=== PATIENT | female | born 1940 | race Caucasian/White ===

== ENCOUNTER → 2016-08-05 | Outpatient (CLI) | payer MEDICARE, BC ==
[2016-08-05 08:37] LABS: Basophils % (A) 0 %; CH 32.4; CHCM 33.9; Eosinophils # (A) 0.3 k/uL (0-0.7); Eosinophils % (A) 4 %; HDW 2.58; HGB 14.2 gm/dL (11.4-16.0); Luc # (Auto) 0.16; Luc % (Auto) 2; Lymphocytes # (A) 0.9 k/uL (1.0-4.8); Lymphocytes % (A) 11 %; MCH 33.3 pg (25.0-35.0); MCHC 34.7 g/dL (31.0-37.0); Monocytes # (A) 0.5 k/uL (0-1.0); Monocytes % (A) 6 %; Neutrophils % (A) 76 %; RBC 4.27 m/uL (3.80-5.40); RDW 12.4 % (11.5-15.5); WBC 7.9 k/uL (3.8-10.6); WBC (Perox) 8.29
[2016-08-05 12:29] LABS: Hemoglobin A1C 5.5 % (4.2-6.1)
[2016-08-05 12:30] LABS: ALT 47 U/L (9-52); AST 37 U/L (14-36); Alkaline Phosphatase 102 U/L (38-126); Anion Gap 9 mmol/L; Blood Urea Nitrogen 21 mg/dL (7-17); Calcium 9.2 mg/dL (8.4-10.2); Carbon Dioxide 28 mmol/L (22-30); Chloride 105 mmol/L (98-107); Cholesterol 109 mg/dL (<200); Glucose 89 mg/dL (74-99); HDL Cholesterol 36 mg/dL (40-60); Magnesium 1.8 mg/dL (1.6-2.3); Non-African American GFR(MDRD) >60 (>60 ml/min/1.73 sqM); Potassium 4.2 mmol/L (3.5-5.1); Sodium 142 mmol/L (137-145); Total Bilirubin 0.4 mg/dL (0.2-1.3); Triglycerides 111 mg/dL (<150)
[2016-08-05 13:19] LABS: Vitamin B12 838 pg/mL
== END | disposition home or self-care (01) ==
LOC: LABWHC1 08:02
PROVIDERS: ATTEND Family Medicine
DX: E78.5 Hyperlipidemia, unspecified (principal); E55.9 Vitamin D deficiency, unspecified; I10 Essential (primary) hypertension; I51.7 Cardiomegaly; E03.9 Hypothyroidism, unspecified; E53.8 Deficiency of other specified B group vitamins
CPT/HCPCS: 36415; 80053; 80061; 82306; 82607; 83036; 83735; 84439; 84443; 85025

== ENCOUNTER → 2016-12-09 | Outpatient (CLI) | payer MEDICARE, BC ==
[2016-12-09 08:45] LABS: Basophils % (A) 1 %; CH 33.3; CHCM 33.3; Eosinophils # (A) 0.5 k/uL (0-0.7); Eosinophils % (A) 8 %; HCT 46.4 % (34.0-46.0); HDW 2.33; Luc # (Auto) 0.13; Luc % (Auto) 2; Lymphocytes # (A) 1.2 k/uL (1.0-4.8); Lymphocytes % (A) 21 %; MCH 32.5 pg (25.0-35.0); MCHC 32.3 g/dL (31.0-37.0); MCV 100.6 fL (80.0-100.0); Mean Platelet Volume 7.7; Monocytes # (A) 0.4 k/uL (0-1.0); Monocytes % (A) 6 %; Neutrophils # (A) 3.5 k/uL (1.3-7.7); Neutrophils % (A) 62 %; RBC 4.61 m/uL (3.80-5.40); RDW 13.3 % (11.5-15.5); WBC 5.7 k/uL (3.8-10.6); WBC (Perox) 5.55
[2016-12-09 08:55] LABS: ALT 35 U/L (9-52); AST 28 U/L (14-36); Alkaline Phosphatase 117 U/L (38-126); Anion Gap 8 mmol/L; Blood Urea Nitrogen 14 mg/dL (7-17); Calcium 9.1 mg/dL (8.4-10.2); Carbon Dioxide 26 mmol/L (22-30); Chloride 108 mmol/L (98-107); Cholesterol 127 mg/dL (<200); Glucose 90 mg/dL (74-99); HDL Cholesterol 42 mg/dL (40-60); Non-African American GFR(MDRD) >60 (>60 ml/min/1.73 sqM); Potassium 4.3 mmol/L (3.5-5.1); Sodium 142 mmol/L (137-145); Total Bilirubin 0.4 mg/dL (0.2-1.3); Uric Acid 4.6 mg/dL (3.7-7.4)
[2016-12-09 13:57] LABS: Hemoglobin A1C 5.3 % (4.2-6.1)
== END | disposition home or self-care (01) ==
LOC: LABWHC1 08:15
PROVIDERS: ATTEND Family Medicine
DX: R19.7 Diarrhea, unspecified (principal); I10 Essential (primary) hypertension; G47.33 Obstructive sleep apnea (adult) (pediatric); E03.9 Hypothyroidism, unspecified
CPT/HCPCS: 36415; 80053; 80061; 83036; 84439; 84443; 84550; 85025

== ENCOUNTER → 2017-12-01 | Outpatient (CLI) | payer MEDICARE, BC ==
[2017-12-01 10:01] LABS: Basophils % (A) 0 %; Eosinophils # (A) 0.4 k/uL (0-0.7); Eosinophils % (A) 6 %; HCT 43.4 % (34.0-46.0); HGB 13.8 gm/dL (11.4-16.0); Lymphocytes # (A) 1.2 k/uL (1.0-4.8); Lymphocytes % (A) 20 %; MCH 31.3 pg (25.0-35.0); MCHC 31.8 g/dL (31.0-37.0); MCV 98.4 fL (80.0-100.0); Mean Platelet Volume 6.7; Monocytes # (A) 0.4 k/uL (0-1.0); Monocytes % (A) 6 %; Neutrophils % (A) 66 %; Platelet Count 167 k/uL (150-450); RBC 4.41 m/uL (3.80-5.40); RDW 12.5 % (11.5-15.5)
[2017-12-01 12:14] LABS: Albumin 4.1 g/dL (3.5-5.0); Calcium 9.6 mg/dL (8.4-10.2); Potassium 4.3 mmol/L (3.5-5.1); Total Bilirubin 0.5 mg/dL (0.2-1.3); Total Protein 6.4 g/dL (6.3-8.2)
[2017-12-01 12:24] LABS: T4, Free (Free Thyroxine) 1.13 ng/dL (0.78-2.19)
[2017-12-01 16:57] LABS: Iron Saturation 49.61 (12.00-45.00)
[2017-12-01 17:10] LABS: Vitamin D 25 Hydroxy 62.3 ng/mL (30.0-100.0)
[2017-12-01 20:14] LABS: Hemoglobin A1C 5.3 % (4.0-6.0)
== END | disposition home or self-care (01) ==
LOC: LABWHC1 08:26
PROVIDERS: ATTEND Family Medicine
DX: E55.9 Vitamin D deficiency, unspecified (principal); G47.30 Sleep apnea, unspecified; D50.9 Iron deficiency anemia, unspecified; I10 Essential (primary) hypertension; E03.9 Hypothyroidism, unspecified
CPT/HCPCS: 36415; 80053; 80061; 82306; 82550; 82607; 83036; 83540; 83550; 84439; 84443; 85025

== ENCOUNTER → 2024-03-03 | Outpatient (CLI) | payer MEDICARE ==
--- NOTE | 2024-03-03 17:05 | CA ---
Transthoracic Echo Report Name: Sandra Babcock Age: 83 Gender: F : 1940 Exam Date: 03/03/2024 15:08 Exam Location: [place] [facility] Ht (in): 61 Wt (lb): 192 Ordering Physician: Betsy Cyr MD Attending/Referring Phys: Copy And Print Associate Caron Kincaid RDCS Procedure CPT: Indications: I27.29 OTHER SECONDARY PULMONARY HYPERTENSION Cardiac Hx: Technical Quality: Good Contrast 1: Total Dose (mL): Contrast 2: Total Dose (mL): MEASUREMENTS (Male / Female) Normal Values 2D ECHO LV Diastolic Diameter PLAX 3.6 cm 4.2 - 5.9 / 3.9 - 5.3 cm LV Systolic Diameter PLAX 2.0 cm IVS Diastolic Thickness 1.1 cm 0.6 - 1.0 / 0.6 - 0.9 cm LVPW Diastolic Thickness 0.9 cm 0.6 - 1.0 / 0.6 - 0.9 cm LV Relative Wall Thickness 0.6 RV Internal Dim ED PLAX 4.5 cm LA Systolic Diameter LX 3.3 cm 3.0 - 4.0 / 2.7 - 3.8 cm LV Diastolic Volume MOD BP 46.3 cm??? 67 - 155 / 56 - 104 cm??? LV Systolic Volume MOD BP 21.0 cm??? 22 - 58 / 19 - 49 cm??? LV Ejection Fraction MOD BP 54.6 % >= 55 % LV Cardiac Index MOD BP 906.4 cm???/min???m??? LV Diastolic Volume MOD 4C 39.7 cm??? LV Systolic Volume MOD 4C 18.0 cm??? LV Ejection Fraction MOD 4C 54.7 % LV Cardiac Index MOD 4C 779.7 cm???/min???m??? LV Diastolic Length 4C 7.4 cm LV Systolic Length 4C 6.1 cm LV Diastolic Volume MOD 2C 37.3 cm??? LV Systolic Volume MOD 2C 16.0 cm??? LV Ejection Fraction MOD 2C 57.2 % LV Cardiac Index MOD 2C 766.1 cm???/min???m??? LV Diastolic Length 2C 4.6 cm LV Systolic Length 2C 3.4 cm M-MODE Aortic Root Diameter MM 3.1 cm LA Systolic Diameter MM 2.0 cm LA Ao Ratio MM 0.6 DOPPLER AV Peak Velocity 101.9 cm/s AV Peak Gradient 4.2 mmHg Mitral E Point Velocity 42.7 cm/s Mitral A Point Velocity 78.5 cm/s Mitral E to A Ratio 0.5 MV Deceleration Time 545.7 ms MV E' Velocity 3.6 cm/s Mitral E to MV E' Ratio 11.7 TR Peak Velocity 350.7 cm/s TR Peak Gradient 49.2 mmHg Right Ventricular Systolic Press 59.6 mmHg FINDINGS Left Ventricle Left ventricular ejection fraction is estimated at 60-65 %. Small left ventricular cavity. Mildly increased septal wall thickness. Mildly decreased left ventricular ejection fraction. Flattening of ventricular septum in systole and diastole Right Ventricle Severe right ventricular dilatation. Severe pulmonary hypertension. Right ventricular systolic pressure estimated at 60 mm hg. Severely reduced right ventricular global systolic function. Right Atrium Mild right atrial dilatation. No right atrial thrombus or mass seen. Left Atrium Normal left atrial size. No left atrial thrombus or mass present. Mitral Valve Structurally normal mitral valve. No mitral stenosis, regurgitation or prolapse. Aortic Valve Trileaflet aortic valve. No aortic valve stenosis or regurgitation. Tricuspid Valve Structurally normal tricuspid valve. Moderate tricuspid regurgitation. Pulmonic Valve Structurally normal pulmonic valve. No pulmonic regurgitation. Pericardium Pericardial effusion located posteriorly. Aorta Normal size aortic root and proximal ascending aorta. CONCLUSIONS Left ventricular hypertrophy with normal LV systolic function Severe pulmonary hypertension with an RV systolic pressure of 60 mm Right ventricle is dilated with RV systolic dysfunction Moderate tricuspid regurgitation Previewed by: Dr. Torres Cummins MD (Electronically Signed) Final Date: 03 March 2024 17:04
== END | disposition home or self-care (01) ==
LOC: RADECHMAIN 14:48
PROVIDERS: ATTEND Family Medicine
DX: I36.1 Nonrheumatic tricuspid (valve) insufficiency (principal); I27.29 Other secondary pulmonary hypertension
CPT/HCPCS: 93306

== ENCOUNTER → 2024-06-13 | Outpatient (CLI) | payer MEDICARE ==
[2024-06-13 16:07] LABS: African American GFR (CKD) 64 (>60 ml/min/1.73 sqM); Blood Urea Nitrogen 17 mg/dL (7-17); Non-African American GFR(CKD) 56 (>60 ml/min/1.73 sqM)
--- NOTE | 2024-06-17 15:40 | CT ---
EXAMINATION TYPE: CT urogram wo/w con DATE OF EXAM: 06/13/2024 5:23 PM COMPARISON: None. CLINICAL INDICATION: Female, 83 years old with history of R31.0 GROSS HEMATURIA, Pt stated she has no ticed blood in her urine 3-4 times since December 18. TECHNIQUE: Contrast used:80ml mL of Isovue 370 with IV Contrast, (none if empty) Oral contrast used: (none if empty) Axial images at 5 mm thick sections. Reconstructed images in the coronal and sagittal planes. Axial images 5 mm thick sections. Reconstructed images in the coronal plane. Delayed images in long d elayed images were obtained. Three-D reconstructed images through the kidneys urinary bladder perform ed on separate computer by the technologist and reviewed. FINDINGS: Limited CT sections are obtained from the lung bases which are clear CT ABDOMEN: Liver contains a cyst in the posterior right lobe measuring 2.9 cm. Spleen appears normal . Splenule is inferior to the spleen. Pancreas is unremarkable. Adrenal glands are normal. Gallbladde r is surgically absent. Kidneys: Kidneys in the precontrast phase appear normal without renal stones or hydronephrosis. On po stcontrast images there is a 4.1 cm posterior lateral inferior pole right renal cyst. A lateral right lower renal cortical cyst is present measuring 1.9 cm. Small cortical renal cysts on the left kidney measuring 1.1 cm. Three-D reconstructed images performed through the kidneys ureter and bladder are evaluated. Renal ca lyces infundibula and renal pelves appear normal. Ureters follow a normal caliber coursing contour an d sequential images to the urinary bladder. There are portions lacking contrast limiting ureter evalu ation more so on the right. No renal pelvis or ureteral filling defects are identified. Abdominal aorta and inferior vena cava are normal. Loops of bowel without oral contrast appear unrema rkable. Appendix is not identified. Degenerative changes are through the lumbar spine. CT PELVIS: Urinary bladder appears normal. Uterus and ovaries are not identified. IMPRESSION: 1. NO SUSPICIOUS ABNORMALITIES TO ACCOUNT FOR GROSS HEMATURIA. 2. RIGHT RENAL CYST. 3. MULTIPLE BILATERAL RENAL CYSTS [facility], , 06/17/2024 3:37 PM
== END | disposition home or self-care (01) ==
LOC: RADCTMAIN 14:49
PROVIDERS: ATTEND Urology
DX: N28.1 Cyst of kidney, acquired (principal)
CPT/HCPCS: 82565; 84520; 74178; 36415; 74400; Q9967

== ENCOUNTER → 2024-08-18 | Outpatient (CLI) | payer MEDICARE ==
--- NOTE | 2024-08-18 13:32 | MM ---
Reason for Exam: Screening (asymptomatic). Last mammogram was performed 1 year(s) and 1 month(s) ago. Patient History: Menarche at age 9. First Full-Term at age 21. Hysterectomy at age 42. Postmenopausal. Risk Values: Gege 5 year model risk: 1.4%. NCI Lifetime model risk: 1.5%. Prior Study Comparison: 07/16/2021 Bilateral MG screening mammo w CAD - 2, [facility]. 07/20/2023 Bilateral MG 3D screening mammo w/cad, [facility]. Tissue Density: The breasts are heterogeneously dense, which may obscure small masses. Findings: Analyzed By CAD. There is an approximate 2 cm spiculated mass at the right 1:00 position 3 cm from the nipple. Additional views and ultrasound are recommended. Malignancy until proven otherwise. No additional masses present. No suspicious mitral calcifications seen. Overall Assessment: Incomplete: need additional imaging evaluation, BI-RAD 0 Management: Diagnostic Mammogram of the right breast. . Patient should continue monthly self-breast exams. A clinical breast exam by your physician is recommended on an annual basis. This exam should not preclude additional follow-up of suspicious palpable abnormalities. Note on Gege scores and lifetime risk: 1. A Gege score greater than 3% is considered moderate risk. If this is the case, consider specialist referral to assess eligibility for a risk reducing agent. 2. If overall lifetime risk for the development of breast cancer is 20% or higher, the patient may qualify for future screening with alternating mammogram and breast MRI. [facility], , 08/18/2024 1:30 PM. Electronically signed and approved by: Timothy Wright M.D. Radiologis
== END | disposition home or self-care (01) ==
LOC: RADMAMWWP 12:42
PROVIDERS: ATTEND Family Medicine
DX: Z12.31 Encounter for screening mammogram for malignant neoplasm of breast (principal); R92.333 Mammographic heterogeneous density, bilateral breasts; Z78.0 Asymptomatic menopausal state
CPT/HCPCS: 77063; 77067

== ENCOUNTER → 2024-08-23 | Outpatient (CLI) | payer MEDICARE ==
--- NOTE | 2024-08-23 11:36 | MM ---
Reason for Exam: Additional evaluation requested from abnormal screening. Last screening mammogram was performed less than 1 month ago. Patient History: Menarche at age 9. First Full-Term at age 21. Hysterectomy at age 42. Postmenopausal. Risk Values: Gege 5 year model risk: 1.4%. NCI Lifetime model risk: 1.5%. Tissue Density: Right: The breasts are heterogeneously dense, which may obscure small masses. Findings: Analyzed By CAD. Persistent roughly 2.0 cm of distortion 2 to 3 cm distance from nipple. Overall Assessment: Incomplete: need additional imaging evaluation, BI-RAD 0 Management: Diagnostic Breast Ultrasound of the right breast. Targeted ultrasound right breast. Results were given to the patient verbally at the time of exam. Patient should continue monthly self-breast exams. A clinical breast exam by your physician is recommended on an annual basis. This exam should not preclude additional follow-up of suspicious palpable abnormalities. Note on Gege scores and lifetime risk: 1. A Gege score greater than 3% is considered moderate risk. If this is the case, consider specialist referral to assess eligibility for a risk reducing agent. 2. If overall lifetime risk for the development of breast cancer is 20% or higher, the patient may qualify for future screening with alternating mammogram and breast MRI. [facility], , 08/23/2024 11:33 AM. Electronically signed and approved by: Kishan Esparza M.D.
--- NOTE | 2024-08-23 12:01 | USB ---
Reason for Exam: Additional evaluation requested from abnormal screening. Patient History: Menarche at age 9. First Full-Term at age 21. Hysterectomy at age 42. Postmenopausal. Risk Values: Gege 5 year model risk: 1.4%. NCI Lifetime model risk: 1.5%. Technique: Method: Targeted. Prior Study Comparison: 07/16/2021 Bilateral MG screening mammo w CAD - 2, [facility]. 07/20/2023 Bilateral MG 3D screening mammo w/cad, [facility]. 08/18/2024 Bilateral MG 3D screening mammo w/cad, [facility]. Findings: The upper inner quadrant of the right breast, the axilla of the right breast and the retroareolar of the right breast were scanned. Targeted ultrasound right breast. At 1:00 position 3 cm distance from nipple there is a 2.8 x 0.8 x 1.7 cm irregular heterogeneous mass that has a more rounded peripheral 9 mm circumscribed isoechoic component. Some vascularity is present. Scanning of the right axilla shows no suspicious lymphadenopathy. Overall Assessment: Suspicious, BI-RAD 4 Management: Ultrasound Core Biopsy of the right breast. Tissue sampling is advised. A clinical breast exam by your physician is recommended on an annual basis and results should be correlated with mammographic findings. This exam should not preclude additional follow-up of suspicious palpable abnormalities. Results were given to the patient verbally at the time of exam. [facility], , 08/23/2024 11:58 AM. Electronically signed and approved by: Kishan Esparza M.D.
== END | disposition home or self-care (01) ==
LOC: RADMAMWWP 11:00
PROVIDERS: ATTEND Family Medicine
DX: R92.8 Other abnormal and inconclusive findings on diagnostic imaging of breast (principal); R92.331 Mammographic heterogeneous density, right breast; Z78.0 Asymptomatic menopausal state
CPT/HCPCS: 77061; 77065

== ENCOUNTER → 2024-09-05 | Day surgery (SDC) | payer MEDICARE ==
--- NOTE | 2024-09-08 14:12 | MM ---
Reason for Exam: Post Procedure Mammogram. Last screening mammogram was performed less than 1 month ago. Patient History: Menarche at age 9. First Full-Term at age 21. Hysterectomy at age 42. Postmenopausal. Risk Values: Gege 5 year model risk: 1.4%. NCI Lifetime model risk: 1.5%. Prior Study Comparison: 07/20/2023 Bilateral MG 3D screening mammo w/cad, [facility]. 08/18/2024 Bilateral MG 3D screening mammo w/cad, [facility]. 08/23/2024 Right MG 3D work up w/cad RT, [facility]. Tissue Density: Right: The breasts are heterogeneously dense, which may obscure small masses. Pathology Description: Location: 1 o'clock. Marker Left Behind. Needle Type: Celero Cores: 3 Skin Nicks: 1 The procedure of ultrasound guided core biopsy was explained to the patient. Benefits, alternatives, and risks were discussed. An informed consent was then obtained. The patient was placed in supine positioning for imaging and for the procedure. Preprocedure ultrasound redemonstrates lobulated mass at 1:00 position 3 cm distance from nipple. There is a circumscribed hypoechoic component and an ill-defined more prominent hypoechoic component. The overlying skin was prepped and draped in usual sterile fashion. Lidocaine buffered with bicarbonate was used as anesthetic into the skin and subcutaneous tissue. Lidocaine with epinephrine is used as anesthetic into the deeper tissue up to area of concern in the right breast. Under ultrasound guidance, a 12-gauge vacuum assisted biopsy gun device was used to obtain 3 core samples. Following this, a biopsy clip was left in lesion. The patient tolerated the procedure well without any immediate complication. The patient was kept in the radiology department for short stay after the procedure and then discharged home in stable condition. Postprocedure mammogram: The patient was transferred to mammography for physician ordered post procedure mammogram for clip placement verification. Post procedure mammogram demonstrates appropriate placement of clip. Impression: Successful, uncomplicated ultrasound guided core biopsy of area of concern in the breast, full pathology results to follow. High index of suspicion noted at time of procedure. [facility], , 09/05/2024 2:58 PM. Pathology Results: Result: Malignant, Invasive ductal carcinoma. Pathology and radiology were reviewed. Findings are concordant. RIGHT BREAST, 1:00, ULTRASOUND GUIDED CORE BIOPSY: Invasive grade 2 ductal carcinoma with separate invasive grade 1 lobular carcinoma and LCIS (see surgical pathology cancer case summary and comment). Overall Assessment: Malignant Assessment: MG diagnostic mammo RT wo CAD - Right: Known biopsy proven malignancy, BI-RAD 6. Management: Surgical Consultation of the right breast. Electronically signed and approved by: Kishan Esparza M.D.
== END ==
LOC: RADUSWWP 11:57
PROVIDERS: ATTEND Surgery
DX: C50.211 Malignant neoplasm of upper-inner quadrant of right female breast (principal); R92.8 Other abnormal and inconclusive findings on diagnostic imaging of breast; Z78.0 Asymptomatic menopausal state
CPT/HCPCS: 88305; 88342; 88341; 77065; 19083; A4648

== ENCOUNTER → 2024-11-03 | Outpatient (CLI) | payer MEDICARE ==
[2024-11-03 15:17] VITALS: BP 112/74; PULSE 86; RESP 16; TEMP 97.9
--- NOTE | 2024-11-03 15:35 | P.BCPN ---
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 Klarissa durán rding a biopsy proven invasive ductal and invasive lobular cancer of the right breast. She had a bilateral mammogram on 08-18-24 which showed a 2 cm spiculated mass 3 cm from the nipple at the 1:00 position. An ultrasound of the right breast was done on 08-23-24, this showed a 2.8 by 0.8 by 1.7 cm irregular lesion with a more rounded peripheral 9mm circumscribed component. She had a core biopsy on 09-05-24 which showed invasive grade 2 ductal cancer, and invasive lobular cancer Grade 1. The radiographs were personally discussed with Dr. Esparza as well as Dr. Lira from radiology. ER/Pr(+) for both, and Her2 (-) for both. She has never had any surgery on her breast. She does not feel any lumps masses or nodules of concern in either breast. She is not complaining of any nipple discharge or skin changes. Patient's case presented at tumor board on 09-20-2024. Patient is going to have a right breast needle localization lumpectomy no sentinel node biopsy. It was not felt that she needed any additional imaging of the breast and therefore the full right breast ultrasound is going to be canceled. I have called and spoken with her daughter she is aware. Caffeine: 2 cups/day nicotine: none chocolate: occasional BCP: used for about 10 years in remote past hormones: ? for a short time Family History: no cancer Hormonal History: menarche: 9 , breast fed: no, age at first : 19 menopause: hysterectomy at 39, not know if took ovaries, no cancer Surgical History: gallbaldder bilateral knee replacement cataract hysterectomy Medical history: pulmonary embolism, on Eliquis now since November seen Dr. Montes right heart cath last week Social History: nicotine: none alcohol: none drugs: none Review of Systems - Constitutional Denies fever, Denies weight loss - EENT Eyes: denies blurred vision Ears: bilateral: decreased hearing (hearing aids), deny: tinnitus Ears, nose, mouth and throat: Denies dysphagia - Breasts bilateral: as per HPI - Cardiovascular Reports shortness of breath, Denies chest pain - Respiratory Denies cough, - Gastrointestinal Reports as per HPI - Genitourinary Genitourinary Comment(s): bladder scope secondary to bleeding, no problems Menstruation: Reports post hysterectomy - Musculoskeletal Reports as per HPI - Integumentary Denies rash, Denies unusual bruising - Neurological Denies headaches, Denies syncope - Psychiatric Reports as per HPI - Endocrine Reports as per HPI - Hematologic/Lymphatic Denies easy bleeding, Denies easy bruising - Allergic/Immunologic Reports as per HPI Past Medical History Additional Past Medical History / Comment(s): pulmonary embolism . History of Any Multi-Drug Resistant Organisms: None Reported Past Surgical History: Orthopedic Surgery Additional Past Surgical History / Comment(s): Bilat knee replacement. Bilat Cataract Past Anesthesia/Blood Transfusion Reactions: No Reported Reaction Past Psychological History: No Psychological Hx Reported Smoking Status: Never smoker, Unknown if ever smoked Past Alcohol Use History: None Reported Past Drug Use History: None Reported Medications and Allergies Home Medications Medication Instructions Recorded Confirmed Type Apixaban [Eliquis] 5 mg PO BID 08/24/24 08/24/24 History Cholecalciferol (Vitamin D3) 125 mcg PO DAILY 08/24/24 08/24/24 History [Vitamin D3 (125 MCG = 5,000 IU)] Cyanocobalamin (Vitamin B-12) 5,000 mcg PO DAILY 08/24/24 08/24/24 History [Vitamin B-12] Folic Acid 0.4 mg PO DAILY 08/24/24 08/24/24 History Furosemide [Lasix] 40 mg PO DAILY 08/24/24 08/24/24 History Levothyroxine Sodium [Synthroid] 75 mcg PO DAILY 08/24/24 08/24/24 History Nebivolol HCl 5 mg PO DAILY 08/24/24 08/24/24 History [place]-3/Dha/Epa/Fish Oil [Fish Oil 1 each PO TID 08/24/24 08/24/24 History 1,000 mg Softgel] Potassium Chloride ER [K-Dur 10] 10 meq PO BID 08/24/24 08/24/24 History Rosuvastatin [Crestor] 10 mg PO DAILY 08/24/24 08/24/24 History Sildenafil [Revatio] 20 mg PO DAILY 08/24/24 08/24/24 History Allergies Allergy/AdvReac Type Severity Reaction Status Date / Time No Known Allergies Allergy Verified 08/24/24 11:39 Objective - Vital Signs Vital Signs: Intake & Output 11/02/24 11/03/24 11/03/24 18:59 06:59 18:59 Weight 77.564 kg - Constitutional General appearance: Present: cooperative - EENT Eyes: Present: EOMI ENT: Present: hearing grossly normal - Neck Neck: Present: normal ROM - Breast Breast-Narrative: Breast Exam: BRA; 40B Inspection: Bilateral grade 3 ptosis Palpation: Right breast: Examination with the patient sitting down reveals some mild ecchymosis in the medial aspect of the breast with approximately a 2 cm area of nodularity that is freely mobile no other dominant masses or nodules of concern Right axilla: No adenopathy of concern Left breast: Examination does not reveal any dominant masses or nodules of concern Left axilla: No adenopathy of concern Ptosis: Grade 3: Right Breast Ptosis, Left Breast Ptosis Breast: right: mass (2 cm medial aspect of breast), left: normal, both: axillary nodes (nonpalpable), skin changes (no lesions of concern) Right Breast Palpation (Multi-positional): Other Left Breast Palpation (Multi-positional): No dominant masses Right Axilla Palpation: No adenopathy of concern Left Axilla Palpation: No adenopathy of concern - Respiratory Respiratory: bilateral: CTA - Cardiovascular Rhythm: regular Heart sounds: normal: S1, S2 - Integumentary Integumentary: Present: normal turgor - Musculoskeletal Musculoskeletal: Present: gait normal - Psychiatric Psychiatric: Present: A&O x's 3, appropriate affect, intact judgment & insight - Additional findings Additional findings: Breast Exam: BRA; 40B Inspection: Bilateral grade 3 ptosis Palpation: Right breast: Examination with the patient sitting down reveals some mild ecchymosis in the medial aspect of the breast resolved with approximately a 2 cm area of nodularity that is freely mobile no other dominant masses or nodules of concern Right axilla: No adenopathy of concern Left breast: Examination does not reveal any dominant masses or nodules of concern Left axilla: No adenopathy of concern Assessment and Plan Plan: Impression: Right breast T2 N0 M0 G2 ER/SC positive HER2 negative invasive ductal carcinoma Invasive lobular carcinoma T1 N0 M0 ER/SC positive HER2 negative G1 Pulmonary emboli Plan: Presentation of case at tumor board done on 09-20-24 right breast needle localization and lumpectomy, possible oncoplastic tissue transfer clearance pulmonary clearance Dr. Cyr clearance cardiology Risk and benefits of the procedure discussed with the patient and her daughter. Risk include but are not limited to bleeding, infection, reaction to the anesthetic. If the margins were to be positive then further tissue acquisition may be necessary. They understand and wish to proceed. CC: Dr. Cyr Prep Education Provided - Preoperative Education Given Pre-Op Kit Given Date: 11/03/24 - Functional Assessment Performed?: Yes (arm abduction passed) - Smoking Cessation Education Provided?: No (non smoker)
--- NOTE | 2024-11-03 16:37 | XR ---
EXAMINATION TYPE: XR chest 2V DATE OF EXAM: 11/03/2024 4:29 PM COMPARISON: None TECHNIQUE: XR chest 2V Frontal and lateral views of the chest. CLINICAL INDICATION:Female, 84 years old with history of I50.32; FINDINGS: Lungs/Pleura: There is no evidence of pleural effusion, focal consolidation, or pneumothorax. Pulmonary vascularity: Unremarkable. Heart/mediastinum: Cardiomediastinal silhouette is unremarkable. Musculoskeletal: Multiple level degenerative disc disease changes seen throughout the spine. IMPRESSION: No acute cardiopulmonary disease/process. [facility], , 11/03/2024 4:34 PM
[2024-11-03 17:11] LABS: INR 1.1 (<1.2); Prothrombin Time 11.9 sec (10.0-12.5)
[2024-11-03 17:15] LABS: ALT 27 U/L (4-34); AST 33 U/L (14-36); African American GFR (CKD) 55 (>60 ml/min/1.73 sqM); Albumin 4.7 g/dL (3.5-5.0); Albumin/Globulin Ratio 1.8; Alkaline Phosphatase 127 U/L (38-126); Anion Gap 14 mmol/L; Blood Urea Nitrogen 38 mg/dL (7-17); Calcium 10.1 mg/dL (8.4-10.2); Carbon Dioxide 24 mmol/L (22-30); Chloride 99 mmol/L (98-107); Globulin 2.6 g/dL; Glucose 80 mg/dL (74-99); Non-African American GFR(CKD) 48 (>60 ml/min/1.73 sqM); Potassium 4.8 mmol/L (3.5-5.1); Sodium 137 mmol/L (137-145); Total Protein 7.3 g/dL (6.3-8.2)
[2024-11-03 17:37] LABS: NT-Pro-B-Type Natriuretic Pept 7310 pg/mL
[2024-11-03 17:45] LABS: T4, Free (Free Thyroxine) 1.46 ng/dL (0.78-2.19)
[2024-11-04 02:20] LABS: Basophils # (A) 0.05 X 10*3/uL (0.00-0.10); Basophils % (A) 0.7 %; Eosinophils # (A) 0.18 X 10*3/uL (0.04-0.35); Eosinophils % (A) 2.7 %; HCT 51.9 % (37.2-46.3); HGB 16.9 g/dL (12.0-15.0); Immature Grans, Automated 0.10 %; Lymphocytes # (A) 1.28 X 10*3/uL (0.90-5.00); Lymphocytes % (A) 19.2 %; MCH 32.3 pg (27.0-32.0); MCHC 32.6 g/dL (32.0-37.0); MCV 99.0 FL (80.0-97.0); Monocytes # (A) 0.61 X 10*3/uL (0.20-1.00); Monocytes % (A) 9.1 %; NRBC Per 100 WBC 0 X 10*3/uL (0.00-0.01); Neutrophils # (A) 4.54 X 10*3/uL (1.80-7.70); Neutrophils % (A) 68.2 %; Platelet Count 165 X 10*3/uL (140-440); RBC 5.24 X 10*6/uL (4.10-5.20); RDW 13.0 % (11.5-14.5); WBC 6.67 X 10*3/uL (4.50-10.00)
[2024-11-04 03:08] LABS: Cholesterol 139.00 mg/dL (0.00-200.00); HDL Cholesterol 47.20 mg/dL (40.00-60.00); LDL Cholesterol,Calculated 69.8 mg/dL (0.0-131.0); Triglycerides 110.00 mg/dL (0.00-149.00); VLDL Calculation 22.00 mg/dL (5.00-40.00)
== END ==
LOC: WWCWWP 14:29
PROVIDERS: ATTEND Surgery
DX: Z01.818 Encounter for other preprocedural examination (principal); I13.0 Hypertensive heart and chronic kidney disease with heart failure and stage 1 through stage 4 chronic kidney disease, or unspecified chronic kidney disease; I50.32 Chronic diastolic (congestive) heart failure; N18.9 Chronic kidney disease, unspecified; E03.9 Hypothyroidism, unspecified; R73.03 Prediabetes; R97.8 Other abnormal tumor markers
CPT/HCPCS: 71046; 80053; 80061; 83036; 83880; 84439; 84443; 85025; 85610; 87070

== ENCOUNTER 2024-11-15 07:11 | Day surgery (SDC) | payer MEDICARE ==
[2024-11-11 13:56] VITALS: BMI 30.1
[~2024-11-15 07:11] MED LIST: HYDROmorphone 0.5 MG/0.5 ML SYRINGE IVP PRN; LACTATED RINGERS 1,000 ML IV SCH; LIDOCAINE 1% (10MG/ML) FOR IV START INTRADERMA PRN
[2024-11-15] MEDS ORDERED: METHYLENE BLUE 50 MG, DEXTROSE 5% IN WATER 50 ML MISCELLANE ONE (08:00)
[2024-11-15] MEDS: IV FLUID CONTINUATION 1,000 ML IV ONE (08:04)
[2024-11-15] MEDS: ONDANSETRON 4 MG/2 ML VIAL IVP ONE (08:10)
[2024-11-15] MEDS: DEXAMETHASONE SOD PHOSPHATE 4 MG/ML 1 ML VIAL IV ONE (08:10)
[2024-11-15] MEDS: ACETAMINOPHEN TAB 500 MG TAB PO PRN (08:11)
[2024-11-15 08:37] LABS: Glucose,Whole Blood 97 mg/dL (70-110)
[2024-11-15] MEDS: LIDOCAINE 1% INJ 10MG/ML (20 ML MDV) SQ ONE ×3 (08:56→11:50)
[2024-11-15] MEDS: SODIUM BICARB 8.4% 50 ML VIAL (1 MEQ/ML) MISCELLANE ONE (08:56)
[2024-11-15] MEDS: METHYLENE BLUE 50 MG/10 ML VIAL INJ ONE (09:01)
[2024-11-15 09:02] VITALS: TEMP 98.1
[2024-11-15] MEDS: HEPARIN SODIUM,PORCINE 5,000 UNIT/ML 1 ML VIAL SQ PRN (09:43)
--- NOTE | 2024-11-15 10:04 | P.NAPBC ---
NAPBC Queries - NAPBC Queries Was patient's case review presented at [facility] tumor board? If no, comment.: Yes Was patient's pathology reviewed at [facility]? If no, comment.: Yes Was breast conservation surgery offered? If no, comment.: Yes Was sentinel node biopsy offered? If no, comment.: No Was diagnosis confirmed by percutaneous core biopsy? If no, comment.: Yes Is patient mastectomy patient?: No Was a preop referral to reconstructive surgeon offered?: No Clinical Stage: right breast invasive ductal and lobular cancer stage I
[2024-11-15] MEDS ORDERED: ePHEDrine 50 MG/ML 1 ML VIAL ONE (10:33)
[2024-11-15] MEDS ORDERED: SUCCINYLCHOLINE CHLORIDE 200 MG/10 ML VIAL IV ONE (10:33)
[2024-11-15] MEDS ORDERED: LIDOCAINE 4% LTA KIT (4 ML) TOPICAL ONE (10:33)
[2024-11-15] MEDS ORDERED: ETOMIDATE 2 MG/ML 10 ML VIAL ONE (10:33)
[2024-11-15] MEDS ORDERED: LIDOCAINE 1% INJ 10MG/ML (20 ML MDV) ONE (10:33)
[2024-11-15] MEDS ORDERED: fentaNYL (PF) 50 MCG/ML 2 ML AMP ONE (10:33)
--- NOTE | 2024-11-15 11:53 | P.BCAON ---
Date of Procedure: 11/15/24 Preoperative Diagnosis: Right breast invasive ductal and invasive lobular carcinoma Postoperative Diagnosis: Same Procedure(s) Performed: Right breast needle localization lumpectomy Anesthesia: JULISSA Surgeon: Viri Mcfadden Estimated Blood Loss (ml): 10 IV fluids (ml): 300 Pathology: other (Breast tissue) Condition: stable Disposition: same day Indications for Procedure: Biopsy-proven right breast invasive ductal and invasive lobular carcinoma Operative Findings: Fibrofatty breast tissue Description of Procedure: The patient was first seen in the radiology department where needle localization of the area of concern of 2 lesions in the right breast was performed. Methylene blue dye was injected at both sites by the radiologist. The patient was then brought to the operative suite. Following induction of anesthesia the right breast was prepped and draped in a sterile fashion. A periareolar incision was made and carried down to the shaft of the needle. Surrounding tissue was excised. Anteriorly dissection was directly under the skin, posteriorly dissection was onto the pectoralis muscle. The area of blue discoloration was resected at both sites. These lesion was resected and painted for orientation. Additional lateral margin was obtained. The specimen was radiographed and the area of concern is well as the clip was identified in the specimen. The wound was well irrigated. After we are sure that hemostasis was attained Surgicel and powder form was placed. Titanium clips were placed. The superior and inferior tissues were brought together with minimal mobilization. After we are sure that hemostasis was attained the subcutaneous tissues were closed using 3-0 Vicryl suture. This was followed by closure of the skin with 3-0 Vicryl subcutaneous suture and a running 4-0 Monocryl suture. Cc of 1% lidocaine were injected into the incision. Sterile dressing was applied. The patient tolerated the procedure in stable condition. All instrument and sponge counts were correct at the end of the case.
[2024-11-15 12:51] VITALS: PULSE 64
[2024-11-15 13:01] VITALS: BP 98/71; RESP 18
== END 2024-11-15 13:37 | disposition home or self-care (01) ==
LOC: OR 07:11
PROVIDERS: ATTEND Surgery
DX: D05.01 Lobular carcinoma in situ of right breast (principal); I11.0 Hypertensive heart disease with heart failure; I50.9 Heart failure, unspecified; E78.5 Hyperlipidemia, unspecified; G47.33 Obstructive sleep apnea (adult) (pediatric); N28.9 Disorder of kidney and ureter, unspecified; Z86.711 Personal history of pulmonary embolism; Z79.890 Hormone replacement therapy; Z79.899 Other long term (current) drug therapy
CPT/HCPCS: 88342; 88307; 88341; 77065; 76098; 19285; 19301; C1819; J0330; J1644; J1100; J0690; J2405; J2003; J3010; Q9968

== ENCOUNTER → 2024-11-24 | Outpatient (CLI) | payer MEDICARE ==
[2024-11-24 09:45] VITALS: BP 120/74; PULSE 66; RESP 17; TEMP 97.9
--- NOTE | 2024-11-24 10:12 | P.BCPO ---
Progress Note - Text Progress Note Date: 11/24/24 Sandra is status post a right breast lumpectomy on 11-15-24. 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 The uninked edge near the anterior margin was focally (+) for invasive lobular cancer. All other margins (-). Tumor 2.7 cm invasive lobular. Examination: Lungs: Clear Heart: Regular rate and rhythm Incision: Clean and dry Impression: Patient doing well postoperatively Plan: We present case at tumor board We have discussed reexcision and at this time we are going to wait until we we presented to tumor board further recommendation I have discussed with the patient and her daughter that if I were to reexcised that I would take skin this time. Appointment with medical oncology Appointment radiation oncology Follow-up here after presentation of case at tumor board CC: Dr. Cyr
== END ==
LOC: WWCWWP 09:23
PROVIDERS: ATTEND Surgery
DX: Z48.89 Encounter for other specified surgical aftercare (principal); Z98.890 Other specified postprocedural states; Z91.011 Allergy to milk products; Z88.8 Allergy status to other drugs, medicaments and biological substances